=== PATIENT | male | born 1965 | race Two or more races ===

== ENCOUNTER 2022-07-29 22:41 | Emergency (ER) | payer MEDICAID, OTHER ==
[~2022-07-29] VITALS: Ht 162.6 cm; Wt 75.9 kg
--- NOTE | 2022-07-29 23:05 | NUR ---
BIBFAMILY WITH CC OF PALPITATION X1 WEEK. PATIENT HX OF CHF, CVA, ANXIETY TOOK BABY ASPIRIN, DIGOXIN AND ELIQUIS INSPECTOR TECHNICIAN. PATIENT IS AOX4. ABLE TO MAKE NEEDS KNOWN. THE PALPITATION IS ACCOMPANIED BY DIZZINESS AND ANXIETY. USES 4POINT CANE FOR WALKING. PLACED COMFORTABLY IN BED. VITALS CHECKED. ATTACHED TO MONITOR
--- NOTE | 2022-07-29 23:06 | NUR ---
DR ASHLEY MINAYA AT PT'S BEDSIDE FOR EVAL
--- NOTE | 2022-07-29 23:33 | NUR ---
FARMER DIVERSIFIED CROPS AT PT'S BEDSIDE
--- NOTE | 2022-07-29 23:47 | NUR ---
ROUSTABOUT CREW AT PT'S BEDSIDE
[2022-07-30 00:24] LABS: BASOPHILS % (AUTO) 0.2 % (0.0-2.0); EOSINOPHILS % (AUTO) 0.9 % (0.0-6.0); HEMATOCRIT 35 % (39-51); HEMOGLOBIN 11.2 g/dL (13.5-17.5); LYMPHOCYTES % (AUTO) 16.5 % (20.0-44.0); MEAN CORPUSCULAR HGB CONC 32 g/dl (31.0-36.0); MEAN CORPUSCULAR VOLUME 79 fL (80-96); MONOCYTES # (AUTO) 0.9 K/uL (0.1-1.30); MONOCYTES % (AUTO) 7.6 % (2.0-12.0); NEUTROPHILS # (AUTO) 8.8 K/uL (1.8-8.9); NEUTROPHILS % (AUTO) 74.8 % (43.0-81.0); PLATELET COUNT (AUTO) 312 K/uL (150-450); RED BLOOD CELL COUNT(AUTO) 4.48 MIL/uL (4.5-6.0); WHITE BLOOD COUNT (AUTO) 11.8 K/uL (4.3-11.0)
[2022-07-30 00:31] LABS: CALCIUM, SERUM 8.9 mg/dL (8.5-10.1); CARBON DIOXIDE 25 mmol/L (21-32); CHLORIDE 105 mmol/L (98-107); GLUCOSE 96 mg/dL (74-106); POTASSIUM 3.8 mmol/L (3.5-5.1); SODIUM SERUM 142 mmol/L (136-145); UREA NITROGEN, BLOOD 16 mg/dL (7-18)
[2022-07-30 01:02] LABS: ALANINE AMINOTRANSFERASE 38 U/L (12-78); ALBUMIN 3.6 g/dL (3.4-5.0); ALKALINE PHOSPHATASE 105 U/L (46-116); ASPARTATE AMINOTRANSFERASE 22 U/L (15-37); BILIRUBIN,DIRECT 0.1 mg/dL (0.0-0.2); BILIRUBIN,TOTAL 0.3 mg/dL (0.2-1.0); TOTAL PROTEIN, SERUM 7.8 g/dL (6.4-8.2)
--- NOTE | 2022-07-30 02:01 | NUR ---
STRESS ANALYST AT PT'S BEDSIDE
[2022-07-30 02:57] VITALS: BP 147/89
--- NOTE | 2022-07-30 02:57 | NUR ---
Patient discharged to home in stable condition. Written and verbal after care instructions given. Patient verbalizes understanding of instruction.
== END 2022-07-30 02:58 | disposition home or self-care (01) ==
LOC: ER 22:45
DX: F41.9 Anxiety disorder, unspecified (principal); R00.2 Palpitations; I11.0 Hypertensive heart disease with heart failure; I50.9 Heart failure, unspecified; Z86.73 Personal history of transient ischemic attack (TIA), and cerebral infarction without residual deficits; Z60.2 Problems related to living alone
CPT/HCPCS: 36415; 71045-TC; 80048-TC; 80076-TC; 83880; 84484-TC; 85025-TC; 85730-TC

== ENCOUNTER 2024-09-18 11:13 | Emergency (ER) | payer MEDICAID ==
[~2024-09-18] VITALS: Ht 167.6 cm; Wt 80.7 kg
[2024-09-18 11:25] VITALS: TEMP 97.9
[2024-09-18 12:20] LABS: CALCIUM, SERUM 9.1 mg/dL (8.5-10.1); CREATININE 1.1 mg/dL (0.6-1.3); SODIUM SERUM 141 mmol/L (136-145); UREA NITROGEN, BLOOD 22 mg/dL (7-18)
[2024-09-18 12:27] LABS: PLATELET COUNT (AUTO) 254 K/uL (150-450); RED BLOOD CELL COUNT(AUTO) 4.89 MIL/uL (4.5-6.0); RED CELL DISTRIBUTION WIDTH 14.9 % (11.5-15.0); WHITE BLOOD COUNT (AUTO) 9.1 K/uL (4.3-11.0)
[2024-09-18] MEDS ORDERED: NAPR-1009 PO (12:37)
[2024-09-18] MEDS ORDERED: KETOROLAC TROMETHAMINE INJ 30 MG/ML VIAL ONE (12:59)
[2024-09-18] MEDS: KETOROLAC TROMETHAMINE INJ 30 MG/ML VIAL IM ONE (13:00)
[2024-09-18 13:47] VITALS: BP 128/75; O2SAT 97
== END 2024-09-18 13:30 | disposition home or self-care (01) ==
LOC: ER 11:17
DX: M25.512 Pain in left shoulder (principal); I11.0 Hypertensive heart disease with heart failure; I50.9 Heart failure, unspecified; Z86.73 Personal history of transient ischemic attack (TIA), and cerebral infarction without residual deficits; W18.30XA Fall on same level, unspecified, initial encounter; Y93.89 Activity, other specified; Y92.89 Other specified places as the place of occurrence of the external cause; Y99.8 Other external cause status
CPT/HCPCS: 99285; 71045; 73030; 96372; 93005; 85025; 80048; 36415; 84484; J1885